=== PATIENT | female | born 1990 | race Caucasian/White ===

== ENCOUNTER → 2019-04-06 | Outpatient (REF) | LOC: M LAB LCGH 15:14 | PROVIDERS: ATTEND Surgery | DX: D17.0 Benign lipomatous neoplasm of skin and subcutaneous tissue of head, face and neck (principal); D17.22 Benign lipomatous neoplasm of skin and subcutaneous tissue of left arm; D17.21 Benign lipomatous neoplasm of skin and subcutaneous tissue of right arm ==